=== PATIENT | female | born 1955 | race Caucasian/White ===

== ENCOUNTER 2016-09-21 09:31 | Day surgery (SDC) | payer MEDICARE, OTHER ==
[2016-09-17 09:32] VITALS: BMI 44.6
[~2016-09-21 09:31] MED LIST: LACTATED RINGERS 1,000 ML IV SCH
[2016-09-21 10:28] VITALS: TEMP 97.7
[2016-09-21 10:42] LABS: Glucose,Whole Blood 100 mg/dL (75-99)
[2016-09-21] MEDS ORDERED: LIDOCAINE 1% 20 ML VIAL (10MG/ML) FOR IV START INTRADERMA ONE (10:44)
[2016-09-21] MEDS ORDERED: PROPOFOL 10 MG/ML 20 ML VIAL IV ONE (10:58)
--- NOTE | 2016-09-21 11:00 | P.GSHP ---
History of Present Illness H&P Date: 09/21/16 Chief Complaint: GERD This is a 59-year-old female with a. History gastric bypass. Patient rents today for EGD. She's had issues with GERD. - Constitutional Constitutional: Reports as per HPI Past Medical History Past Medical History: Asthma, Blood Disorder, Cancer, COPD, CVA/TIA, GERD/Reflux , Liver Disease, Myocardial Infarction (IN), Skin Disorder, Thyroid Disorder Additional Past Medical History / Comment(s): HX PALPITATIONS, IN X2. 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 RECENT C. CATH NL. ANEMIA. [place] LYMPHOMA 1985, HAD CHEMO & RADIATION TO NECK/CHEST - CAUSED DAMAGE. CVA 2014. HYPOGLYCEMIA. DYSPHAGIA. HX HIATAL HERNIA. VOICE HOARSENESS. ENLARGED LIVER. 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 BRUISES EASILY. Last Myocardial Infarction Date:: [id number] History of Any Multi-Drug Resistant Organisms: None Reported Past Surgical History: Appendectomy, Bariatric Surgery, Bowel Resection, Section, Cholecystectomy, Heart Catheterization, Hysterectomy Additional Past Surgical History / Comment(s): 1998 KERRY-N-Y BYPASS; LATER " BLEW MY POUCH UP," ENLARGED WHEN GOING FOR UPPER GI. MULT C. CATHS, LAST . HIATAL HERNIA REPAIR. ("NERVE SEVERED UNDER RT BREAST.") Past Anesthesia/Blood Transfusion Reactions: Previous Problems w/ Anesthesia Additional Past Anesthesia/Blood Transfusion Reaction / Comment(s): AWOKE DURING SURGERY, AND W/ EGD. Smoking Status: Never smoker Past Alcohol Use History: None Reported Past Drug Use History: None Reported - Past Family History Father Family Medical History: Cancer Additional Family Medical History / Comment(s): POSS ORAL CA Medications and Allergies Home Medications Medication Instructions Recorded Confirmed Type Albuterol Inhaler [Ventolin Hfa 1 - 2 puff INHALATION Q6HR PRN 09/17/16 History Inhaler] Amitriptyline HCl [Elavil] 30 mg PO HS 09/17/16 09/21/16 History Atorvastatin [Lipitor] 80 mg PO HS 09/17/16 09/21/16 History Bisacodyl [Dulcolax] 5 mg PO DAILY 09/17/16 09/21/16 History Calcium Carbonate/Vitamin D3 2 each PO DAILY 09/17/16 09/21/16 History [Caltrate 600 Plus D3 Tablet] Cholecalciferol [Vitamin D3] 1,000 unit PO DAILY 09/17/16 09/21/16 History Clopidogrel [Plavix] 75 mg PO DAILY 09/17/16 09/21/16 History Cyanocobalamin [Vitamin B-12 1,000 mcg SQ QMONTH 09/17/16 09/21/16 History Injection] Iron Sucrose Iv 1 applic IV DIRECTED PRN 09/17/16 09/21/16 History Isomethept/Dichlphn/Acetaminop 1 each PO DAILY PRN 09/17/16 09/21/16 History [Midrin] L.acidoph,Paracasei, B.lactis 1 each PO PC-TID 09/17/16 09/21/16 History [Probiotic] Levothyroxine Sodium [Synthroid] 100 mcg PO DAILY 09/17/16 09/21/16 History Lisinopril [Zestril] 10 mg PO DAILY 09/17/16 09/21/16 History Magnesium 100 mg PO DAILY 09/17/16 09/21/16 History Multivit-Min/FA/Lycopene/Lut 2 each PO DAILY 09/17/16 09/21/16 History [Centrum Silver Tablet] Nitroglycerin 0.4 mg SL DIRECTED PRN 09/17/16 09/21/16 History [place]-3 Fatty Acids/Fish Oil [Fish 2 each PO DAILY 09/17/16 09/21/16 History Oil 1,000 mg Softgel] Omeprazole [PriLOSEC] 20 mg PO AC-BRKFST 09/17/16 09/21/16 History Papaya [Papaya Enzyme] 3 each PO BID 09/17/16 09/21/16 History Propranolol HCl [Inderal] 60 mg PO BID 09/17/16 09/21/16 History Sertraline HCl [Zoloft] 100 mg PO HS 09/17/16 09/21/16 History Tapentadol HCl [Nucynta] 50 mg PO Q6H 09/17/16 09/21/16 History Vitamin E 100 unit PO DAILY 09/17/16 09/21/16 History clonazePAM [KlonoPIN] 1 mg PO BID 09/17/16 09/21/16 History Allergies Allergy/AdvReac Type Severity Reaction Status Date / Time caffeine [From Cafergot] Allergy Nausea & Verified 09/21/16 10:01 Vomiting ergotamine [From Cafergot] Allergy Nausea & Verified 09/21/16 10:01 Vomiting topiramate [From Topamax] Allergy TOLD NOT Verified 09/21/16 10:01 TO TAKE AGAIN alendronate sodium AdvReac Nausea Verified 09/21/16 10:01 [From Fosamax] Surgical - Exam Vital Signs Temp Pulse Resp BP Pulse Ox 97.7 F 61 18 116/63 96 09/21/16 10:27 09/21/16 10:27 09/21/16 10:27 09/21/16 10:27 09/21/16 10:27 - General well developed, no distress - Eyes PERRL - ENT normal pinna - Neck no masses - Respiratory normal expansion - Cardiovascular Rhythm: regular - Abdomen Abdomen: soft, non tender Results - Labs Abnormal Lab Results - Last 24 Hours (Table) 09/21/16 Range/Units 10:41 POC Glucose (mg/dL) 100 H (75-99) mg/dL Assessment and Plan Plan: GERD. We'll perform EGD.
--- NOTE | 2016-09-21 11:09 | P.OP ---
Date of Procedure: 09/21/16 Preoperative Diagnosis: GERD Postoperative Diagnosis: Status post Arianna-en-Y gastric bypass Mild esophagitis Procedure(s) Performed: EGD Anesthesia: MAC Surgeon: Nato Douglass Pathology: other (Esophagus) Condition: stable Disposition: PACU Description of Procedure: The patient's placed on the endoscopy table in the lateral position. She received IV sedation. The gastroscope placed oropharynx passed in the esophagus and into the stomach. Scope was then placed through the gastrojejunostomy. There is no evidence of any obstruction or stricture. Scope was then brought back and the proximal gastric pouch. This without evidence of inflammation. The GE junction was at 40 cm. There was minimal esophagitis. A biopsies was performed. The proximal esophagus appeared normal. Scope was withdrawn for patient.
[2016-09-21 11:20] VITALS: RESP 16
[2016-09-21 11:34] VITALS: BP 101/44; PULSE 60
== END 2016-09-21 12:25 | disposition home or self-care (01) ==
LOC: ORWHC2ENDO 09:31
PROVIDERS: ATTEND Surgery
DX: K21.0 Gastro-esophageal reflux disease with esophagitis (principal); Z98.84 Bariatric surgery status; Z88.8 Allergy status to other drugs, medicaments and biological substances; I49.9 Cardiac arrhythmia, unspecified; J45.909 Unspecified asthma, uncomplicated; J44.9 Chronic obstructive pulmonary disease, unspecified; E07.9 Disorder of thyroid, unspecified; F39 Unspecified mood [affective] disorder; Z79.02 Long term (current) use of antithrombotics/antiplatelets; Z79.899 Other long term (current) drug therapy; Z86.73 Personal history of transient ischemic attack (TIA), and cerebral infarction without residual deficits; Z92.21 Personal history of antineoplastic chemotherapy; Z92.3 Personal history of irradiation; I25.2 Old myocardial infarction; Z85.72 Personal history of non-Hodgkin lymphomas
CPT/HCPCS: 88305; 43239; J2704

== ENCOUNTER → 2016-10-15 | Outpatient (CLI) | payer MEDICARE, OTHER ==
[2016-10-15 12:33] VITALS: BMI 46.0
== END ==
LOC: BARWHC3 11:30
PROVIDERS: ATTEND Family Medicine
DX: E66.01 Morbid (severe) obesity due to excess calories (principal); D50.0 Iron deficiency anemia secondary to blood loss (chronic); K21.9 Gastro-esophageal reflux disease without esophagitis; Z98.84 Bariatric surgery status
CPT/HCPCS: 97803

== ENCOUNTER → 2018-02-16 | Outpatient (CLI) | payer MEDICARE, OTHER ==
--- NOTE | 2018-02-17 07:09 | FL ---
Modified barium swallow. HISTORY: Dysphagia. Modified barium swallow was performed with the department of speech pathology. The patient was prese nted with various consistencies of barium. There is no evidence for aspiration or penetration. Full report is to follow from the department of speech pathology. Impression: Normal study.
== END | disposition home or self-care (01) ==
LOC: RADFLMAIN 11:03
PROVIDERS: ATTEND Otolaryngology
DX: R13.10 Dysphagia, unspecified (principal)
CPT/HCPCS: 74230

== ENCOUNTER → 2018-03-01 | Outpatient (CLI) | payer MEDICARE, OTHER ==
--- NOTE | 2018-03-01 22:33 | CT ---
EXAMINATION TYPE: CT abdomen pelvis w con DATE OF EXAM: 03/01/2018 HISTORY: Other unspecified abdominal hernia per order. CT DLP: 1700.3mGycm Automated Exposure Control for Dose Reduction was Utilized. CONTRAST: CT scan of the abdomen and pelvis is performed with oral and with IV Contrast, patient injected with 100mL mL of Isovue 300. COMPARISON: CT abdomen pelvis October 04, 2013 FINDINGS: LUNG BASES: Calcification at level of mitral valve is redemonstrated. LIVER/GB: Cholecystectomy clips are redemonstrated. Prominent right hepatic lobe is again seen. PANCREAS: No significant abnormality is seen. SPLEEN: No significant abnormality is seen. ADRENALS: No significant abnormality is seen. KIDNEYS: Simple appearing exophytic 1.8 cm cyst laterally mid pole level left kidney is redemonstrate d axial image 35. BOWEL: Stable small hiatal hernia. There are surgical sutures epigastric region likely from gastric b ypass surgery. [place] stomach is poorly distended similar to prior study. There is no suspicious smal l or large bowel dilatation. Ingested contrast is not reach colonic level. There is mild wall thicken ing involving the distal colon from splenic flexure through rectum. A mild colitis at this level inessa ot be excluded versus product of poor distention. Correlate clinically. UTERUS/ADNEXA: Uterus is surgically absent or markedly atrophic. A few scattered pelvic phleboliths a re seen. LYMPH NODES: No greater than 1cm abdominal or pelvic lymph nodes are appreciated. OSSEOUS STRUCTURES: No significant abnormality is seen. OTHER: There is curvilinear density with coils from ventral wall hernia repair surgery overlying the anterior abdomen. There is redemonstration of recurrent [place] ventral wall hernia containing fat and tiny mesenteric vessels just left of midline axial image 67 not significant change from prior. IMPRESSION: Stable left wide neck paracentral ventral wall hernia as detailed above.
== END | disposition home or self-care (01) ==
LOC: RADCTMAIN 14:05
PROVIDERS: ATTEND Family Medicine
DX: K43.9 Ventral hernia without obstruction or gangrene (principal)
CPT/HCPCS: 74177; Q9967

== ENCOUNTER → 2019-11-21 | Outpatient (CLI) | payer MEDICARE ==
--- NOTE | 2019-11-21 09:29 | US ---
EXAMINATION TYPE: US abdomen limited DATE OF EXAM: 11/21/2019 COMPARISON: NONE CLINICAL HISTORY: R94.5 abnormal results of liver function studies. Abnormal liver test EXAM MEASUREMENTS: Liver Length: 17.5 cm Gallbladder Wall: Surgically absent cm CBD: .6 cm Right Kidney: 10.7 x 3.9 x 4.4 cm Pancreas: Obscured by bowel gas Liver: Upper limits of size. There is increased echogenicity of the hepatic parenchyma with diminishe d visualization of the portal triads most commonly relating to hepatic steatosis and limiting evaluat ion for underlying hepatic masses. Gallbladder: Surgically absent Evidence for sonographic Cagle's sign: No CBD: wnl Right Kidney: wnl IMPRESSION: 1. Sonographic findings most commonly related to hepatic steatosis. Correlate with liver function rosalee t results as other hepatocellular diseases are possible. 2. Obscuration of the pancreas by bowel gas.
== END | disposition home or self-care (01) ==
LOC: RADUSWWP 09:00
PROVIDERS: ATTEND Family Medicine
DX: K76.0 Fatty (change of) liver, not elsewhere classified (principal)
CPT/HCPCS: 76705

== ENCOUNTER → 2019-12-11 | Outpatient (CLI) | payer MEDICARE ==
--- NOTE | 2019-12-12 09:39 | MR ---
EXAMINATION TYPE: MR brain wo/w con DATE OF EXAM: 12/11/2019 COMPARISON: CT 10/22/2018 HISTORY: Headache, Weakness TECHNIQUE: Multiplanar, multisequence images of the brain and brainstem is performed without and with IV contras t, utilizing 11.5 mL intravenous Gadavist . FINDINGS: Diffusion weighted images demonstrate no evidence of a recent infarct or other diffusion ab normality. There is postsurgical change involving the left calvarium. Artifact from a metallic postsu rgical clips noted involving the left cerebral hemisphere distorts the image. There are a few scattered punctate areas of abnormal signal in the white matter which are nonspecific . No midline shift. No mass effect. Tiny focal areas of abnormal signal involving the brainstem may be artifactual and related to the clip. There is a 5 mm area of rounded enhancement adjacent to the medulla on the left on image 6 which most likely is related to partial volume averaging. It is too small to characterize. Area of abnormal sig nal the left frontal lobe likely related to encephalomalacia Midline structures demonstrate normal morphology. The craniocervical junction appears within normal limits. Post contrast images demonstrate no abnormal enhancement. The dural venous sinuses appear pa tent changes of mild chronic sinusitis. Bilateral chronic mastoiditis. IMPRESSION: 1. Artifact from the postsurgical change limits assessment. If there is concern for recurrent or new aneurysm correlate with MRA [place]. 2. There is a 5 mm area of rounded enhancement adjacent to the medulla on the left which may be relat ed to partial volume averaging or artifact and is too small to characterize. Recommend a short-term 3 month follow-up MRI to confirm stability. 3. Changes of chronic mastoiditis and sinusitis
== END | disposition home or self-care (01) ==
LOC: RADMRIMAIN 16:32
PROVIDERS: ATTEND Physical Medicine & Rehabilitation
DX: G93.89 Other specified disorders of brain (principal); H70.13 Chronic mastoiditis, bilateral; J32.9 Chronic sinusitis, unspecified; G89.29 Other chronic pain; M62.81 Muscle weakness (generalized)
CPT/HCPCS: 70553; A9585

== ENCOUNTER → 2020-01-26 | Outpatient (CLI) | payer MEDICARE ==
--- NOTE | 2020-01-26 12:31 | US ---
EXAMINATION TYPE: US venous doppler duplex LE LT DATE OF EXAM: 01/26/2020 12:23 PM COMPARISON: US CLINICAL HISTORY: M79.662,R22.42 PAIN AND SWELLING LT LOWER LIMB. Left leg swelling SIDE PERFORMED: Left TECHNIQUE: The lower extremity deep venous system is examined utilizing real time linear array sonog hernandez with graded compression, doppler sonography and color-flow sonography. VESSELS IMAGED: External Iliac Vein (EIV) Common Femoral Vein Deep Femoral Vein Greater Saphenous Vein * Femoral Vein Popliteal Vein Small Saphenous Vein * Proximal Calf Veins (* superficial vessels) Left Leg: Negative for DVT Attempted to call Dr's office at time of exam, no answer IMPRESSION: 1. No diagnostic evidence of DVT as visualized.
== END | disposition home or self-care (01) ==
LOC: RADUSWWP 12:04
PROVIDERS: ATTEND Internal Medicine Critical Care Medicine
DX: M79.662 Pain in left lower leg (principal); R22.42 Localized swelling, mass and lump, left lower limb; Z91.09 Other allergy status, other than to drugs and biological substances; Z88.1 Allergy status to other antibiotic agents; Z88.8 Allergy status to other drugs, medicaments and biological substances; Z91.041 Radiographic dye allergy status

== ENCOUNTER → 2020-02-15 | Outpatient (CLI) | payer MEDICARE ==
--- NOTE | 2020-02-16 07:26 | MR ---
EXAMINATION TYPE: MR lumbar spine wo con DATE OF EXAM: 02/15/2020 COMPARISON: NONE HISTORY: Degeneration, spondylosis without myelopathy, bilateral lower extremity weakness all per ord er. Low back pain into left leg for 3 weeks per patient. TECHNIQUE: Multiplanar, multisequence imaging of the lumbar spine is performed without IV contrast. FINDINGS: Sagittal images of the lumbar spine show vertebral body heights and alignment to appear sat isfactory. Multilevel disc desiccation is present. There is mild disc space narrowing at L4-L5 level. There is mild disc space narrowing lower thoracic levels with mild to moderate anterior spurring. T he conus medullaris is normal in position and signal ending mid L1 level. The bone marrow signal int ensity is within normal limits. Axial images at T12-L1 level show mild broad disc bulge mildly effacing anterior thecal sac axial ayush ge 30. Axial images at L1-L2 levels show mild facet degenerative changes and ligamentum flavum hypertrophy. Axial images at L2-L3 show mild/moderate facet degenerative changes and ligamenta labrum hypertrophy. Axial images at the L3-L4 level show moderate facet degenerative changes and ligamentum flavum hypert rophy with some effacement of the posterior lateral thecal sac. There is mild broad-based posterior d isc protrusion minimally effacing the anterior thecal sac. Bilateral neural foramina are patent. Axial images at the L4-L5 level show moderate to advanced facet degenerative changes and ligament fla vum hypertrophy slightly effacing the right posterior lateral thecal sac. There is increased prominen t epidural fat at this level noted. There is moderate broad-based disc protrusion effacing the anteri or thecal sac. Bilateral neural foramina remain patent. Axial images at the L5-S1 level show mild facet degenerative changes bilaterally. Spinal canal is pre served. Bilateral neural foramina are patent. Prominent epidural fat at this level noted. Paraspinal muscle bulk is maintained. No suspicious incidental retroperitoneal findings are seen. IMPRESSION: Multilevel degenerative changes in the lumbar spine as detailed above. No obvious exiting nerve effacement noted.
== END | disposition home or self-care (01) ==
LOC: RADMRIMAIN 15:44
PROVIDERS: ATTEND Physical Medicine & Rehabilitation
DX: M47.816 Spondylosis without myelopathy or radiculopathy, lumbar region (principal); M47.817 Spondylosis without myelopathy or radiculopathy, lumbosacral region
CPT/HCPCS: 72148

== ENCOUNTER → 2020-08-21 | Outpatient (CLI) | payer MEDICARE ==
--- NOTE | 2020-08-21 15:35 | US ---
EXAMINATION TYPE: US thyroid st tissue head/neck DATE OF EXAM: 08/21/2020 COMPARISON: NONE CLINICAL HISTORY: 65-year-old female E21.0 Primary hyperparathyroidism. Patient had non-Hodgkin's lym phoma and had radiation years ago. Abnormal bloodwork shows hyperparathyroidism. TECHNIQUE: Multiple sonographic images of the thyroid gland are obtained. FINDINGS: GLAND SIZE: Right Lobe: 3.4 x 1.3 x 1.3 cm Overall Parenchyma: homogenous Left Lobe: 3.5 x 0.9 x 0.8 cm Overall Parenchyma: homogeneous Isthmus Thickness: 0.2 cm NODULES RIGHT: # of nodules measured on right: 0 LEFT: # of nodules measured on left: 1 1. Small 4 mm cyst. Prior size: No Previous ISTHMUS: # of nodules measured in the isthmus: 0 Bilateral neck scanned, no evidence of lymphadenopathy. 2 small lymph nodes seen left neck. 1 = 0.7 x 0.6 x 0.3 cm 2 = 0.3 cm IMPRESSION: 1. Slightly small size of the thyroid gland; measurements as above. 2. Benign 4 mm cyst in the left lobe. 3. A couple incidental nonenlarged left-sided cervical lymph nodes measuring up to 6 mm short axis.
== END ==
LOC: RADUSWWP 13:01
PROVIDERS: ATTEND Family Medicine
DX: E04.1 Nontoxic single thyroid nodule (principal); Z85.72 Personal history of non-Hodgkin lymphomas
CPT/HCPCS: 76536

== ENCOUNTER → 2020-08-26 | Outpatient (CLI) | payer MEDICARE ==
--- NOTE | 2020-08-26 21:54 | MR ---
EXAMINATION TYPE: MR brain wo/w con DATE OF EXAM: 08/26/2020 COMPARISON: MRI brain December 11, 2019. HISTORY: Headaches, history of aneurysm repair. TECHNIQUE: Multiplanar, multisequence images of the brain and brainstem is performed without and with IV contras t, utilizing 12 mL intravenous Gadavist . FINDINGS: Diffusion weighted images demonstrate no evidence of a recent infarct or other diffusion ab normality. There is no extra-axial fluid collection or new significant white matter signal abnormali ty. Few small scattered foci of T2 hyperintensity throughout white matter bilaterally redemonstrated. The ventricular system and cisternal spaces are normal in size and appearance. The brain volume is age appropriate. Midline structures demonstrate normal morphology. The craniocervical junction appears within normal limits. Post contrast images demonstrate no abnormal enhancement. The dural venous sinuses appear pa tent. The visualized sinuses are clear and the globes are intact. Artifact from aneurysm clip in the left anterior cerebral artery distribution redemonstrated. Small area of adjacent encephalomalacia in ferior left frontal lobe redemonstrated. Nasal septum remains deviated to the left of midline. IMPRESSION: Artifact from aneurysm clip with adjacent encephalomalacia inferior left frontal lobe red emonstrated. Minimal chronic small vessel ischemic change. No suspicious new findings.
== END | disposition home or self-care (01) ==
LOC: RADMRIMAIN 18:20
PROVIDERS: ATTEND Family Medicine
DX: I67.89 Other cerebrovascular disease (principal); G93.89 Other specified disorders of brain; G31.84 Mild cognitive impairment of uncertain or unknown etiology
CPT/HCPCS: 70553; A9585

== ENCOUNTER → 2021-05-19 | Outpatient (CLI) | payer MEDICARE ==
--- NOTE | 2021-05-19 12:12 | XR ---
EXAMINATION TYPE: XR ribs LT w pa chest xray DATE OF EXAM: 05/19/2021 COMPARISON: NONE HISTORY: Pain TECHNIQUE: Single view of the chest 4 views of the ribs are submitted. FINDINGS: The lungs are clear. No Evidence for pneumothorax. No evidence for focal contusion. Medi astinal structures are midline. Evaluation of the ribs fails to demonstrate evidence for displaced r ib fracture or secondary sign of rib fracture. IMPRESSION: Negative study
== END | disposition home or self-care (01) ==
LOC: RADXRYALE 10:50
PROVIDERS: ATTEND Family Medicine
DX: R07.81 Pleurodynia (principal); W01.10XA Fall on same level from slipping, tripping and stumbling with subsequent striking against unspecified object, initial encounter

== ENCOUNTER → 2022-06-10 | Outpatient (CLI) | payer MEDICARE ==
[2022-06-10 19:26] LABS: African American GFR (CKD) 100.9 (60.0-200.0); Albumin 4.5 g/dL (3.8-4.9); Albumin/Globulin Ratio 1.75 (1.60-3.17); Anion Gap 11.4 mmol/L (10.00-18.00); BUN/Creat Ratio 31.14 Ratio (12.00-20.00); Blood Urea Nitrogen 22.2 mg/dL (9.0-27.0); Calcium 9.7 mg/dL (8.7-10.3); Globulin 2.6 g/dL (1.6-3.3); Non-African American GFR(CKD) 87.1 (60.0-200.0); Potassium 5.1 mmol/L (3.5-5.5); Total Bilirubin 0.4 mg/dL (0.30-1.20); Total Protein 7.1 g/dL (6.2-8.2)
== END | disposition home or self-care (01) ==
LOC: LABWHC1 13:06
PROVIDERS: ATTEND Internal Medicine Endocrinology, Diabetes & Metabolism
DX: E03.8 Other specified hypothyroidism (principal); E21.0 Primary hyperparathyroidism
CPT/HCPCS: 36415; 80053; 82306; 83970; 84443

== ENCOUNTER → 2022-07-03 | Outpatient (CLI) | payer MEDICARE ==
[2022-07-03 14:00] LABS: African American GFR (CKD) >90 (>60 ml/min/1.73 sqM); Blood Urea Nitrogen 18 mg/dL (7-17); Non-African American GFR(CKD) >90 (>60 ml/min/1.73 sqM)
--- NOTE | 2022-07-03 16:28 | CT ---
EXAMINATION TYPE: CT soft tissue neck w con DATE OF EXAM: 07/03/2022 COMPARISON: None HISTORY: 67-year-old female C85.98, non-Hodgkin's lymphoma, right anterior neck nodule TECHNIQUE: Contiguous axial scanning of the soft tissues of the neck performed with IV Contrast, ran ent injected with 70 mL of Isovue 300. Coronal/sagittal reconstructions performed. CT DLP: 748.3 mGycm Automated exposure control for dose reduction was used. FINDINGS: Visualized intracranial structures shows aneurysm clip in the left parasellar region. Tiny osteoma within the mid left ethmoid air cells measuring 5 mm. Leftward nasal septal deviation. L eft temporal craniotomy flap. Mastoid air cells are pneumatized. Orbits and globes are intact. Nasopharynx appears clear. A few punctate calcifications in the region of the palatine tonsils measuring up to 3 mm suggesting s equela of prior infection. Otherwise, nasal pharynx is clear. Epiglottis and prevertebral soft tissues are satisfactory. The glottic and subglottic structures as w ell as the tracheal column are clear. Loop recorder device along the left paramedian anterior chest wall. Heart appears upper limits of normal in size with LAD coronary artery calcifications mild aortic valv ular calcifications noted. Enlarged caliber to the main right and left pulmonary arteries measuring up to 2.8 cm suggesting unde rlying pulmonary artery hypertension. Mild emphysematous change in the visualized upper lungs with mi ld biapical pleural-parenchymal scarring. Mild atherosclerotic arch calcifications with conventional arch vessel branching anatomy. Severe degenerative changes right sternoclavicular joint. The airway gland is small/atrophic. Submandibular glands appear satisfactory as do the parotid glands . No evident cervical lymphadenopathy. There is a palpable marker placed along the anterior right base of the neck. Overlying this region, t he distal sternocleidomastoid muscle is noted. Just inferior to this region, the degenerative right s ternoclavicular joint is present. Chronic-appearing superior endplate deformity T1 and T2. Bridging anterior endplate spondylosis thora cic spine. IMPRESSION: 1. PALPABLE MARKER PLACED ALONG THE ANTERIOR RIGHT BASE OF THE NECK. JUST UNDERLYING THIS IS THE DIST AL ASPECT OF THE RIGHT STERNOCLEIDOMASTOID MUSCLE. JUST INFERIOR TO THIS IS A SEVERELY DEGENERATIVE R IGHT STERNOCLAVICULAR JOINT. CORRELATE TO THE PALPABLE FINDING CORRESPONDS TO BONY SPURRING AND DE GENERATIVE CAPSULAR HYPERTROPHY FROM THE ARTHRITIC JOINT. 2. NO SUSPICIOUS CERVICAL LYMPHADENOPATHY OR NECK MASS IDENTIFIED. 3. INCIDENTAL COPD AND SUSPECTED PULMONARY ARTERIAL HYPERTENSION WITHIN THE UPPER CHEST.
== END | disposition home or self-care (01) ==
LOC: RADCTMAIN 12:57
PROVIDERS: ATTEND Internal Medicine Hematology & Oncology
DX: C85.98 Non-Hodgkin lymphoma, unspecified, lymph nodes of multiple sites (principal); J44.9 Chronic obstructive pulmonary disease, unspecified; M19.011 Primary osteoarthritis, right shoulder
CPT/HCPCS: 82565; 84520; 70491; 36415; Q9967

== ENCOUNTER → 2022-11-26 | Outpatient (CLI) | payer MEDICARE ==
--- NOTE | 2022-11-26 12:51 | FL ---
EXAMINATION TYPE: FL sniff test without CXR DATE OF EXAM: 11/26/2022 Comparison: Radiograph 05/19/2021 Clinical History: 67-year-old female shortness of breath, J98.6 DISORDER OF DIAPHRAGM TECHNIQUE: Real-time fluoroscopy was performed during patient breathing including sniffing maneuver. Total fluoroscopy time: 1 minute 10 seconds. Total images: 20. DOSE AREA PRODUCT (DAP) UGY*M,MGY*CM: 393.63. Findings: Loop recorder device is noted. There is slight asymmetric elevation of the right hemidiaphragm. During quiet breathing as well as during deep inspiration/expiration, there is symmetric movement and excursion of both hemidiaphragms. During sniffing maneuver, there is no paradoxical or sluggish movement encountered on either side. Impression: While there is slight asymmetric elevation of the right hemidiaphragm, there are no findings on sniff test to confirm hemidiaphragmatic paralysis.
== END | disposition home or self-care (01) ==
LOC: RADUSWWP 11:00
PROVIDERS: ATTEND Internal Medicine Critical Care Medicine
DX: J98.6 Disorders of diaphragm (principal)
CPT/HCPCS: 76000

== ENCOUNTER 2023-07-18 19:43 | Outpatient (CLI) | payer MEDICARE ==
--- NOTE | 2023-07-21 21:14 | P.PCN ---
Date of Procedure: 07/18/23 Operative Findings: Screening polysomnography report Date of service is 07/18/2023 Primary care physician is Dr. Umair Montejo Pertinent history This is a 68-year-old female patient, referred to the sleep center to undergo a sleep apnea evaluation. The patient was recently noted to have some nocturnal oxygen desaturation during a hospital stay and she also reported snoring history. The patient also has various comorbidities including chronic bronchial asthma, previous history of CVA, nonalcoholic steatohepatitis, hypothyroidism, non-Hodgkin's lymphoma, and iron deficiency anemia. Pertinent physical findings The patient's height is 5 feet and 2 inches, weight is 226 pounds with a body mass index of 41.3 Technical description The patient was studied using a standard complex polysomnography protocol that included recording of the 2 EKG, Central, occipital and frontal EEG, right and left outer canthus EOG, submental EMG, right and left anterior tibialis EMG, respiratory airflow by thermocouple and or pressure/flow transducer, respiratory efforts by abdominal and thoracic PVDF belts, oxygen saturation by cable oximetry. Position by observation synchronized the PSG. Equipment used: [employer]. Sleep architecture The total recording duration was 395.0 minutes. The total sleep time was 310.5 minutes. Overall sleep visit was 78.6%. The latency to sleep onset was 56.5 minutes. Latency to REM sleep was 244.5 minutes. The sleep architecture was characterized by 11.1% stage I, 78.7% stage II, 0% stage III, 10.3% REM sleep. The wake after sleep onset time was 19.5 minutes. The total arousal index was 7.3 Sleep continuity summary The patient had a total of 38 arousals with an index of 7.3. Respiratory arousal index was 0.2 Periodic limb movement summary The patient had a total of 212 periodic limb movement activity with an index of 41.0. The patient had only 4 periodic limb movements with arousals with an index of 0.8 Cardiac summary The average heart rate was 52, 961 and a maximum heart rate was 55 Respiratory analysis The respiratory analysis during the sleep study showed a total of 14 obstructive events of which 3 were obstructive apneas, 0 mixed apneas and 11 were obstructive hypopneas. Based on the AASM rule 1B, the patient had an AHI of 2.7. Oxygenation analysis The patient had a baseline pulse ox of 96% during awake. The lowest pulse ox was 88%. This was measured during non-REM sleep. The minimum oxygen saturation during REM was 89%. This patient spent only 1 minute of the sleep time below pulse ox of 89% Assessment Primary snoring without evidence of any significant sleep breathing disorder. The patient's AHI was 2.7 Delayed sleep onset could be related to first night effect versus periodic limb movement activity/restless leg. The patient's sleep latency time was approximately 56 minutes. No significant nocturnal oxygen desaturations Adequate sleep architecture with some diminishment of stage III sleep and over representation of stage II sleep. Overall sleep efficiency was 78.6% Excessive. Regular movement activity, not causing any significant arousals and the patient had adequate sleep maintenance. Mild persistent bronchial asthma Previous history of CVA History of non-Hodgkin's lymphoma Chronic nonalcoholic liver disease Iron deficiency anemia Hypothyroidism Glucoma and macular degeneration Acid reflux Chronic kidney disease Plan No need for any CPAP therapy in this patient as the patient does not have any significant sleep breathing disorder. Her overall sleep efficiency was reduced due to delayed sleep onset. There may be an underlying iron deficiency contributing to her excessive periodic limb movement activity. Nevertheless, the patient sleep maintenance was adequate. Suggest treating comorbidities and replacing iron if she is iron deficient. Encourage weight loss. No need for CPAP therapy and this is essentially negative study regarding any form of sleep breathing disorder.
== END 2023-07-19 06:42 | disposition home or self-care (01) ==
LOC: 3 N SLEEP 19:43
PROVIDERS: ATTEND Internal Medicine Critical Care Medicine
DX: G47.33 Obstructive sleep apnea (adult) (pediatric) (principal); G47.36 Sleep related hypoventilation in conditions classified elsewhere; D63.1 Anemia in chronic kidney disease; N18.9 Chronic kidney disease, unspecified; K21.9 Gastro-esophageal reflux disease without esophagitis; H35.30 Unspecified macular degeneration; H40.9 Unspecified glaucoma; E03.9 Hypothyroidism, unspecified; K75.81 Nonalcoholic steatohepatitis (NASH); J45.909 Unspecified asthma, uncomplicated; Z85.72 Personal history of non-Hodgkin lymphomas; Z86.73 Personal history of transient ischemic attack (TIA), and cerebral infarction without residual deficits; Z91.018 Allergy to other foods; Z88.8 Allergy status to other drugs, medicaments and biological substances; Z79.899 Other long term (current) drug therapy; Z79.890 Hormone replacement therapy; Z79.02 Long term (current) use of antithrombotics/antiplatelets
CPT/HCPCS: 95810